=== PATIENT | male | born 2000 | race Caucasian/White ===

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

== ENCOUNTER 2022-05-24 23:20 | Emergency (ER) | payer MEDICAID ==
[~2022-05-24] VITALS: Ht 180.3 cm; Wt 79.5 kg
[2022-05-24 23:22] VITALS: BP 148/88
== END 2022-05-25 06:30 | disposition home or self-care (01) ==
LOC: M ED 23:20
DX: S90.111A Contusion of right great toe without damage to nail, initial encounter (principal); W22.8XXA Striking against or struck by other objects, initial encounter; Y92.098 Other place in other non-institutional residence as the place of occurrence of the external cause; R11.0 Nausea; R06.02 Shortness of breath

== ENCOUNTER 2022-06-14 14:55 | Inpatient (IN) | payer MEDICAID ==
[~2022-06-14] VITALS: Ht 180.3 cm; Wt 81.8 kg
[2022-06-14] MEDS ORDERED: BUPR300T92 PO (15:27)
[2022-06-14 15:44] LABS: HEMATOCRIT 41.1 % (42.0-52.0); HEMOGLOBIN 13.6 g/dl (13.5-17.5); MEAN CORPUSCULAR HEMOGLOBIN 30.3 pg (27.0-33.0); MEAN CORPUSCULAR HGB CONC 33.1 g/dl (32.0-36.5); MEAN CORPUSCULAR VOLUME 91.5 fl (80.0-96.0); PLATELET COUNT, AUTOMATED 238 10^3/uL (150-450); RED BLOOD COUNT 4.49 10^6/uL (4.30-6.10); WHITE BLOOD COUNT 4.8 10^3/uL (4.0-10.0)
[2022-06-14 16:26] LABS: RSV AMPLIFICATION NEGATIVE (NEGATIVE)
[2022-06-14 16:32] LABS: ACETAMINOPHEN LEVEL < 2.0 UG/ML (10.0-30.0); ALBUMIN 4.3 GM/DL (3.2-5.2); ALT/SGPT 23 U/L (12-78); AMPHETAMINES LEVEL URINE NEGATIVE (NEGATIVE); BARBITURATES URINE NEGATIVE (NEGATIVE); BENZODIAZEPINES URINE NEGATIVE (NEGATIVE); BILIRUBIN,DIRECT 0.2 MG/DL (0.0-0.2); BILIRUBIN,TOTAL 0.6 MG/DL (0.2-1.0); BLOOD UREA NITROGEN 11 MG/DL (7-18); CANNABINOIDS URINE POSITIVE (NEGATIVE); CARBON DIOXIDE LEVEL 29 MEQ/L (21-32); CHLORIDE LEVEL 107 MEQ/L (98-107); COCAINE METABOLITE URINE NEGATIVE (NEGATIVE); CREATININE FOR GFR 0.92 MG/DL (0.70-1.30); ETHYL ALCOHOL (ETHANOL) < 0.003 % (0.000-0.010); GLOMERULAR FILTRATION RATE > 60.0 (>60); GLUCOSE, FASTING 95 MG/DL (70-100); METHADONE URINE NEGATIVE (NEGATIVE); OPIATES URINE NEGATIVE (NEGATIVE); PHENCYCLIDINE URINE NEGATIVE (NEGATIVE); POTASSIUM SERUM 4.3 MEQ/L (3.5-5.1); SALICYLATE LEVEL < 1.7 MG/DL (5.0-30.0); SODIUM LEVEL 139 MEQ/L (136-145); THYROID STIMULATING HORMONE 0.448 uIU/ML (0.358-3.740); TOTAL PROTEIN 7.2 GM/DL (6.4-8.2)
[2022-06-14] MEDS ORDERED: HOME MED LIST COMPLETE! XX SCH (23:00)
[2022-06-15] MEDS: buPROPion **XL** TABLET 150MG (WELLBUTRIN XL) PO SCH ×2 (08:57→08:58)
[2022-06-16] MEDS: buPROPion **XL** TABLET 150MG (WELLBUTRIN XL) PO SCH (09:00)
[2022-06-16] MEDS ORDERED: MOM 30ML SUSPENSION UDC PO PRN (13:35)
[2022-06-16] MEDS ORDERED: MAALOX 30 ML SUSP *UDC PO PRN (13:35)
[2022-06-16 14:26] LABS: RSV AMPLIFICATION NEGATIVE (NEGATIVE)
[2022-06-16 17:32] VITALS: BP 142/82
[2022-06-16] MEDS: NICOTINE 21MG/24HR 1 EA TRANSDERMAL TD SCH (18:30)
[2022-06-16] MEDS: diphenhydrAMINE 25MG CAP PO PRN (23:13)
[2022-06-17 06:05] VITALS: BP 130/63
[2022-06-17] MEDS: NICOTINE 21MG/24HR 1 EA TRANSDERMAL TD SCH (09:00)
[2022-06-17] MEDS: buPROPion **XL** TABLET 150MG (WELLBUTRIN XL) PO SCH (09:00)
[2022-06-17 18:16] VITALS: BP 154/83
[2022-06-17] MEDS: IBUPROFEN 400MG TAB PO PRN (19:46)
[2022-06-17] MEDS: diphenhydrAMINE 25MG CAP PO PRN (22:05)
[2022-06-18 06:08] VITALS: BP 128/73
[2022-06-18] MEDS: NICOTINE 21MG/24HR 1 EA TRANSDERMAL TD SCH (09:00)
[2022-06-18] MEDS: buPROPion **XL** TABLET 150MG (WELLBUTRIN XL) PO SCH (09:00)
[2022-06-18 18:30] VITALS: BP 135/68
[2022-06-18] MEDS: diphenhydrAMINE 25MG CAP PO PRN (22:41)
[2022-06-19 06:26] VITALS: BP 120/66
[2022-06-19] MEDS: buPROPion **XL** TABLET 150MG (WELLBUTRIN XL) PO SCH (08:29)
[2022-06-19] MEDS: NICOTINE 21MG/24HR 1 EA TRANSDERMAL TD SCH (08:29)
[2022-06-19] MEDS: IBUPROFEN 400MG TAB PO PRN (22:09)
[2022-06-19] MEDS: traZODone 50 MG TAB PO PRN (22:29)
[2022-06-20 06:12] VITALS: BP 123/59
[2022-06-20] MEDS: buPROPion **XL** TABLET 150MG (WELLBUTRIN XL) PO SCH (09:00)
[2022-06-20] MEDS: NICOTINE 21MG/24HR 1 EA TRANSDERMAL TD SCH (09:00)
[2022-06-20] MEDS: IBUPROFEN 400MG TAB PO PRN (10:16)
[2022-06-20 18:23] VITALS: BP 128/80
[2022-06-21] MEDS: traZODone 50 MG TAB PO PRN ×2 (00:13→22:37)
[2022-06-21] MEDS: buPROPion **XL** TABLET 150MG (WELLBUTRIN XL) PO SCH (09:00)
[2022-06-21] MEDS: NICOTINE 21MG/24HR 1 EA TRANSDERMAL TD SCH (09:00)
[2022-06-21 12:25] VITALS: BP 137/67
[2022-06-21 18:27] VITALS: BP 149/79
[2022-06-21] MEDS: IBUPROFEN 400MG TAB PO PRN (22:37)
[2022-06-22 06:00] VITALS: BP 128/73
[2022-06-22] MEDS: NICOTINE 21MG/24HR 1 EA TRANSDERMAL TD SCH (09:00)
[2022-06-22] MEDS: buPROPion **XL** TABLET 150MG (WELLBUTRIN XL) PO SCH (09:00)
[2022-06-22] MEDS: IBUPROFEN 400MG TAB PO PRN ×2 (09:02→23:03)
[2022-06-22 17:27] VITALS: BP 151/84
[2022-06-22] MEDS: diphenhydrAMINE 25MG CAP PO PRN (23:02)
[2022-06-22] MEDS: traZODone 50 MG TAB PO PRN (23:34)
[2022-06-23] MEDS: NICOTINE 21MG/24HR 1 EA TRANSDERMAL TD SCH (09:00)
[2022-06-23 16:50] VITALS: BP 138/66
[2022-06-23] MEDS: IBUPROFEN 400MG TAB PO PRN (22:30)
[2022-06-23] MEDS: traZODone 50 MG TAB PO PRN (22:30)
[2022-06-24 06:32] VITALS: BP 129/72
[2022-06-24] MEDS: NICOTINE 21MG/24HR 1 EA TRANSDERMAL TD SCH (07:44)
== END 2022-06-24 14:18 | disposition home or self-care (01) | DRG 751 ==
LOC: M ED 14:55 → M ED INP 06-16 13:34 → M PSY 06-16 17:25
PROVIDERS: ADMIT Student in an Organized Health Care Education/Training Program; ATTEND Psychiatry & Neurology Psychiatry
DX: F33.9 Major depressive disorder, recurrent, unspecified (principal); F95.2 Tourette's disorder; I10 Essential (primary) hypertension; F84.0 Autistic disorder; F41.1 Generalized anxiety disorder; F42.9 Obsessive-compulsive disorder, unspecified; F17.200 Nicotine dependence, unspecified, uncomplicated; F43.10 Post-traumatic stress disorder, unspecified; Z91.14 Patient's other noncompliance with medication regimen; Z87.820 Personal history of traumatic brain injury; Z81.8 Family history of other mental and behavioral disorders; Z81.3 Family history of other psychoactive substance abuse and dependence; Z59.00 Homelessness unspecified; Z62.819 Personal history of unspecified abuse in childhood

== ENCOUNTER → 2023-02-25 | Outpatient (CLI) | payer MEDICAID ==
[~2023-02-25] MED LIST: BUPR300T92 PO
[2023-02-25 19:32] LABS: HIV 1&2 SCREEN NEGATIVE (NEGATIVE)
[2023-02-25 19:40] LABS: HEPATITIS C VIRUS ABY INDEX 0.08 INDEX (<0.8)
[2023-02-25 20:28] LABS: GC DNA AMPLIFICATION NEGATIVE (NEGATIVE)
== END ==
LOC: M LAB 17:57
PROVIDERS: ATTEND Physician Assistant
DX: Z11.4 Encounter for screening for human immunodeficiency virus [HIV] (principal)

== ENCOUNTER 2023-09-24 17:20 | Observation (INO) | payer MEDICAID ==
[~2023-09-24] VITALS: Ht 180.3 cm; Wt 85.2 kg
[2023-09-24 17:51] LABS: VENOUS BASE EXCESS -0.5 (-2.0-2.0); VENOUS HCO3 24.7 MMOL/L (23.0-27.0); VENOUS O2 SATURATION 97.8 % (60.0-80.0); VENOUS PARTIAL PRESSURE CO2 42.3 mmHg (38.0-50.0); VENOUS PARTIAL PRESSURE O2 102.1 mmHg (30.0-50.0); VENOUS PH 7.384 UNITS (7.330-7.430); VENOUS STANDARD HCO3 24.1 MMOL/L
[2023-09-24 18:02] LABS: BASO # 0.1 10^3/uL (0.0-0.2); BASO % 0.4 % (0.0-1.0); EOS # 0.1 10^3/uL (0.0-0.5); EOS % 0.7 % (0.0-3.0); HEMATOCRIT 46.5 % (42.0-52.0); HEMOGLOBIN 16.1 g/dl (13.5-17.5); LYMPH # 3.1 10^3/uL (1.5-5.0); LYMPH % 27.8 % (24.0-44.0); MEAN CORPUSCULAR HEMOGLOBIN 31.4 pg (27.0-33.0); MEAN CORPUSCULAR HGB CONC 34.6 g/dl (32.0-36.5); MEAN CORPUSCULAR VOLUME 90.8 fl (80.0-96.0); MONO % 8.8 % (2.0-8.0); NEUTROPHILS # 6.9 10^3/uL (1.5-8.5); NEUTROPHILS % 62.1 % (36.0-66.0); PLATELET COUNT, AUTOMATED 329 10^3/uL (150-450); RED BLOOD COUNT 5.12 10^6/uL (4.30-6.10); WHITE BLOOD COUNT 11.2 10^3/uL (4.0-10.0)
[2023-09-24] MEDS: NS 1,000 ML IV ONE (18:10)
[2023-09-24] MEDS: CHARCOAL ACTIVATED LIQUID 25GM/120ML BTL PO ONE (18:10)
[2023-09-24 18:26] LABS: ETHYL ALCOHOL (ETHANOL) < 0.003 % (0.000-0.010)
[2023-09-24 18:28] LABS: CPK CREATINE PHOSPHOKINASE 203 U/L (46-171); SALICYLATE LEVEL < 3.0 MG/DL (<30)
[2023-09-24 18:29] LABS: ALBUMIN 4.7 G/DL (3.2-5.2); ALKALINE PHOSPHATASE 62 U/L (46-116); ALT/SGPT 14 U/L (7.0-40); AST/SGOT 16 U/L (<34); BILIRUBIN,DIRECT 0.4 MG/DL (<0.4); BLOOD UREA NITROGEN 13 MG/DL (9-23); CALCIUM LEVEL 9.4 MG/DL (8.5-10.1); CARBON DIOXIDE LEVEL 26 MMOL/L (20-31); CHLORIDE LEVEL 108 MMOL/L (98-107); CREATININE FOR GFR 1.03 MG/DL (0.70-1.30); GLOMERULAR FILTRATION RATE > 60.0 (>60); GLUCOSE, FASTING 114 MG/DL (60-100); POTASSIUM SERUM 3.4 MMOL/L (3.5-5.1); SODIUM LEVEL 142 MMOL/L (136-145); TOTAL PROTEIN 7.7 G/DL (5.7-8.2)
[2023-09-24 18:31] LABS: THYROID STIMULATING HORMONE 2.928 uIU/ML (0.55-4.78)
[2023-09-24] MEDS ORDERED: hydrALAZINE 20MG/ML 1ML VIAL IV PRN (19:10)
[2023-09-24] MEDS ORDERED: ACETAMINOPHEN TAB 650MG DOSE (2X325MG) PO PRN (19:45)
[2023-09-24] MEDS ORDERED: ONDANSETRON 4MG 2ML VIAL IV PRN (20:20)
[2023-09-24] MEDS ORDERED: ONETAB9 PO (20:43)
[2023-09-24] MEDS ORDERED: ATOM25CA7 PO (20:43)
[2023-09-24] MEDS ORDERED: HOME MED LIST COMPLETE! XX SCH (20:45)
[2023-09-24] MEDS: DOCUSATE SODIUM 100MG CAPSULE PO SCH (22:45)
[2023-09-24 23:50] VITALS: BP 137/79; TEMP 97.7; O2SAT 97
[2023-09-25] MEDS: POTASSIUM CHLORIDE 10MEQ SR TABLET PO ONE (00:19)
[2023-09-25] MEDS: NS 1,000 ML IV SCH (00:20)
[2023-09-25 04:13] VITALS: BP 139/96; TEMP 98.7; O2SAT 98
[2023-09-25 04:34] LABS: HEMATOCRIT 40.7 % (42.0-52.0); MEAN CORPUSCULAR HEMOGLOBIN 31.5 pg (27.0-33.0); MEAN CORPUSCULAR HGB CONC 34.2 g/dl (32.0-36.5); MEAN CORPUSCULAR VOLUME 92.3 fl (80.0-96.0); PLATELET COUNT, AUTOMATED 258 10^3/uL (150-450); RED BLOOD COUNT 4.41 10^6/uL (4.30-6.10); WHITE BLOOD COUNT 7.2 10^3/uL (4.0-10.0)
[2023-09-25 04:40] LABS: HEMOGLOBIN 13.9 g/dl (13.5-17.5)
[2023-09-25 04:45] LABS: INR 1.1; PROTHROMBIN TIME 13.9 SECONDS (12.5-14.5)
[2023-09-25 05:08] LABS: ALBUMIN 3.8 G/DL (3.2-5.2); ALKALINE PHOSPHATASE 50 U/L (46-116); ALT/SGPT < 9 U/L (7.0-40); AST/SGOT 10 U/L (<34); BILIRUBIN,TOTAL 1.2 MG/DL (0.3-1.2); BLOOD UREA NITROGEN 9 MG/DL (9-23); CALCIUM LEVEL 8.3 MG/DL (8.5-10.1); CARBON DIOXIDE LEVEL 27 MMOL/L (20-31); CHLORIDE LEVEL 109 MMOL/L (98-107); CREATININE FOR GFR 0.78 MG/DL (0.70-1.30); GLOMERULAR FILTRATION RATE > 60.0 (>60); GLUCOSE, FASTING 99 MG/DL (60-100); POTASSIUM SERUM 3.7 MMOL/L (3.5-5.1); SODIUM LEVEL 140 MMOL/L (136-145); TOTAL PROTEIN 6.5 G/DL (5.7-8.2)
[2023-09-25 07:22] VITALS: BP 138/91; TEMP 98.2; O2SAT 99
[2023-09-25 11:54] VITALS: BP 127/80; TEMP 97.2; O2SAT 99
[2023-09-25 18:56] VITALS: BP 128/78; TEMP 97.4; O2SAT 96
[2023-09-25 23:53] VITALS: BP 143/81; TEMP 96.9; O2SAT 98
[2023-09-26 04:24] VITALS: BP 131/85; TEMP 96.8; O2SAT 100
[2023-09-26 06:11] LABS: INR 1.05; PROTHROMBIN TIME 13.4 SECONDS (12.5-14.5)
[2023-09-26 08:15] VITALS: BP 133/78; TEMP 98.8; O2SAT 99
== END 2023-09-26 11:03 | disposition home or self-care (01) ==
LOC: M ED 17:20 → M ED INP 17:21 → M PCU 22:00
PROVIDERS: ADMIT Internal Medicine; ATTEND Internal Medicine
DX: T43.632A Poisoning by methylphenidate, intentional self-harm, initial encounter (principal); R45.851 Suicidal ideations; Y92.89 Other specified places as the place of occurrence of the external cause; Z91.51 Personal history of suicidal behavior; S10.91XA Abrasion of unspecified part of neck, initial encounter; S60.812A Abrasion of left wrist, initial encounter; Z91.52 Personal history of nonsuicidal self-harm; E87.6 Hypokalemia; F90.9 Attention-deficit hyperactivity disorder, unspecified type; F33.2 Major depressive disorder, recurrent severe without psychotic features; F41.1 Generalized anxiety disorder; F84.0 Autistic disorder; F42.9 Obsessive-compulsive disorder, unspecified; F95.2 Tourette's disorder; K58.9 Irritable bowel syndrome, unspecified; F17.210 Nicotine dependence, cigarettes, uncomplicated